=== PATIENT | male | born 1975 | race Caucasian/White ===

== ENCOUNTER 2020-08-10 03:58 | Inpatient (IN) | payer BC ==
[~2020-08-10] VITALS: Ht 198.1 cm; Wt 124.7 kg
[~2020-08-10 03:58] MED LIST: CELEBREX200 MG PO; MEDROL4 M1 PO; NORCO 5-325 TA1 EACH PO
--- NOTE | 2020-08-10 06:49 | NUR ---
ASSESSMENT COMPLETED. GCS 15, A&O X4. LUNGS CLEAR, HEART TONES REGULAR. ABD FIRM, TENDER. RUQ PAIN 8/10, PRN PAIN MED PROVIDED. SPO2 97%. CMS INTACT. IV WNL, CDI, FLUSHED WELL. IV FLUIDS INFUSING PER ORDER. PT LAST ATE @ 1999 ON 08/09/20. CALL LIGHT AND PAIN MANAGEMENT EDUCATION PROVIDED. NO OTHER NEEDS. CALL LIGHT IN REACH.
--- NOTE | 2020-08-10 07:00 | NUR ---
BEDSIDE REPORT RECEIVED FROM DIEGO HERMAN. pt RESTING IN BED AT THIS TIME. RATES PAIN 6/10 IN ABDOMEN "STILL OKAY". IVF INFUSING WNL ORDERED. CPOX IN PLACE, SPO2 WNL. CALL LIGHT IN REACH. FATHER IN ROOM.
--- NOTE | 2020-08-10 07:50 | NUR ---
CALL LIGHT ANSWERED. IV PUMP ALARMING DISTAL OCCLUSION. FLUSHED WNL, GOOD BLOOD RETURN. ASSESSMENT COMPLETE. BOWEL TONES ACTIVE X 4, ABD SOFT, TENDER W PALPATION RUQ. pt DENIES NAUSEA. CALL LIGHT IN REACH. pt HAS NO REQUESTS AT THIS TIME.
--- NOTE | 2020-08-10 09:35 | NUR ---
pt'S DAD TO NURSES STATION. pt REQUESTING FLUIDS. EDUCATED ON NPO STATUS. pt DECLINES MOUTH WASH. IVF INFUSING WNL ORDERED.
[2020-08-10] MEDS ORDERED: OMEPRAZOLE20 MG PO (10:01)
--- NOTE | 2020-08-10 10:18 | NUR ---
pt UP TO RESTROOM WITH QUALITY ASSURANCE NURSE ASSIST. CONSENT FOR SURGERY OBTAINED BY THIS RN AND IN CHART. pt DENIES ANY NEED FOR PRN PAIN MEDICATION. CALL LIGHT IN REACH.
--- NOTE | 2020-08-10 11:03 | NUR ---
IN pt ROOM TO OFFER HIBACLEANSE SHOWER. pt SLEEPING, RESTING IN BED WITH EYES CLOSED. BREATHING EQUAL AND UNLABORED. FATHER ON COUCH.
[2020-08-10] MEDS ORDERED: FISH OIL 1,0001 EAC2 PO (11:13)
--- NOTE | 2020-08-10 11:13 | NUR ---
MED REC COMPLETE
--- NOTE | 2020-08-10 12:00 | NUR ---
In room to reconnect pts IV fluids. IV draws and flushes, pts fluids reconnected and started as ordered. Pt completed his shower, complete hibaclense wash as well, and is in bed (new linens) with new gown on and new socks. Pt in bed, side rails up, table and call light within reach, CPOX on and reading 96% on RA. Pt denies dizziness or nausea and 3/10 tolerable pain.
--- NOTE | 2020-08-10 12:16 | NUR ---
PATIENT FINISHED WITH SHOWER, USED HIBICLENS GEL. CPOX PROBE BACK ON FINGER, BATHROOM FLOOR DRIED, CALL LIGH IN REACH
--- NOTE | 2020-08-10 13:15 | NUR ---
Looking through pts EMAR, noticed that there were two separate orders for Ancef with different dosages, unsure when to give and how much. Called pharmacy and spoke to Hugo, who said he would call MD to discuss the issue.
--- NOTE | 2020-08-10 13:54 | EKG ---
[facility] [address] [facility] [place], [place] [address] Signed Normal sinus rhythm Normal ECG No previous ECGs available Confirmed by SUMEET JOYCE DO ([id number]) on 08/10/2020 1:53:55 PM Electronically Signed By: SUMEET JOYCE DO 08/10/20 1354 PATIENT NAME: JOSE TAVERASFRAN COLINDRES Electrocardiogram DATE OF : 79 PHYSICIAN: SUMEET JOYCE DO REPORT #: [id number] REPORT IS CONFIDENTIAL AND NOT TO BE RELEASED WITHOUT AUTHORIZATION
--- NOTE | 2020-08-10 14:30 | NUR ---
Spoke with Ganesh. He is awaiting surgery. States he lives in an apartment. He plans on returning home on dc. His father and other family members will assist him as needed. He denies needs. States he had a previous inguinal hernia surgery and went home without problem.
--- NOTE | 2020-08-10 16:00 | NUR ---
PT TO OR.
--- NOTE | 2020-08-10 16:35 | NUR ---
In room for rounding. Pt reports minimal pain and no nausea, no needs at this time. Pts dad at bedside. Pt in bed, table and call light within reach.
--- NOTE | 2020-08-10 18:57 | NUR ---
RECEIVED REPORT FROM DIEGO OCONNOR. pt OFF FLOOR AT THIS TIME. WHITEBOARD UPDATED.
--- NOTE | 2020-08-10 21:10 | NUR ---
pt ARRIVED FROM PACU, RECEIVED REPORT FROM DIEGO MIDDLETON. pt DROWSY REPEATED HE WAS "EXTREMELY HUNGRY, I WANT SOME STEAK" DRESSINGS HAVE SCANT SHADOWING NOTED. DRAIN HAS SMALL AMOUNT OF SS OUTPUT.
--- NOTE | 2020-08-10 21:20 | NUR ---
08/10/202119 Minna Rodriguez 2009 PT ARRIVED IN PACU NON RESPONSIVE TO NOXIOUS STIMULI WITH OPA IN PLACE. CHIN LIFT HELD BY RN. 2029 PT BREATHING WITH OPA IN PLACE AND CHIN LIFT NOT NEEDED. 2053 PT REACTIVE. OPA REMOVED. OXYGEN REMOVED. 2054 PT AWAKE AND ASKING QUESTIONS ABOUT SURGERY. 2099 C/O ABD PAIN 10. DECLINED PAIN MED AT THIS TIME. LOOKING AT PICTURE FROM SURGERY. 2109 TO MED SURG. BED PLUGGED IN AND REPORT GIVEN TO RN.
--- NOTE | 2020-08-10 21:45 | NUR ---
pt VERY DROWSY AT TIMES, WAKES EASILY. O2 SAT DROPS TO 85% AT TIMES, 2L VIA NC TO MAINTAIN SATS. TOLERATING JELLO AND WATER, PROVIDED MORE ITEMS TO EAT. PAIN CONTINUES TO BE TOLERABLE. pt STATES "I DON'T FEEL LIKE I'M GOING TO ANY MORE, IT'S SHARPER BUT IT IS MUCH BETTER." CALL LIGHT WITHIN REACH
--- NOTE | 2020-08-10 22:10 | NUR ---
IN TO TAKE POSTOP VITALS, NO FURTHER NEEDS AT THIS TIME
--- NOTE | 2020-08-10 22:35 | NUR ---
pt REPEATS HIS QUESTIONS AND IS DROWSY AT TIMES. ORIENTED X4. DISCUSSED OPERATION AND MEDICATIONS. pt IS TOLERATING JELLO, WATER AND APPLESAUCE. REPORTED HIS PAIN "IS DIFFERENT THAN BEFORE" TOLERABLE AT THIS TIME. DISCUSSED PAIN MANAGEMENT. ALL QUESTIONS ANSWERED. CALL LIGHT WITHIN REACH.
--- NOTE | 2020-08-10 23:10 | NUR ---
IN TO DO VITALS. pt RESTING IN BED WITH EYES CLOSED, WOKE TO VOICE. ON 2L O2 VIA NC. REPORTED HIS PAIN IS "OKAY", MENTIONED HE IS LIGHTHEADED, HIS BLOOD PRESSURE AND PULSE ARE WNL. REINFORCED HE NEEDS TO CALL PRIOR TO GETTING UP. CALL LIGHT WITHIN REACH.
--- NOTE | 2020-08-11 00:01 | NUR ---
IN RM WITH RN TO GET VITALS, I&Os, ASST PT TO STAND, AMBU TO TOILET, PT BK IN BED AT THIS TIME, PT EDUCATION ON BRACING WITH PILLOW FOR COUGH AND MOVEMENT, NO FURTHER NEEDS AT THIS TIME
--- NOTE | 2020-08-11 00:02 | NUR ---
ANTIBIOTIC GIVEN (SEE MAR). pt UP TO VOID, 1PA. PAIN WHEN MOVING, OTHERWISE FINE. HAS SANDWICH AT BEDSIDE. NO FURTHER REQUESTS AT THIS TIME. CALL LIGHT WITHIN REACH.
--- NOTE | 2020-08-11 02:14 | NUR ---
ROUNDED ON pt. RESTING IN BED WITH EYES CLOSED, RESPIRATIONS REGULAR AND UNLABORED. CALL LIGHT WITHIN REACH.
--- NOTE | 2020-08-11 04:11 | NUR ---
ROUNDED ON pt. RESPIRATIONS REGULAR AND UNLABORED. EYES CLOSED. O2 SAT 93% ON ROOM AIR. CALL LIGHT WITHIN REACH.
--- NOTE | 2020-08-11 04:57 | NUR ---
pt RESTING IN BED WITH EYES CLOSED, RESPIRATIONS REGULAR. WOKE TO VOICE. REPORTED 5/10 PAIN, PRN GIVEN (SEE MAR). pt DENIES LIGHTHEADEDNESS AT THIS TIME. QUARTER SIZED SANGUINEOUS DRAINAGE NOTED ON ACTICOAT. DRY DRAINAGE NOTED ON OTHER SURGICAL SITES. CALL LIGHT WITHIN REACH.
--- NOTE | 2020-08-11 06:04 | NUR ---
pt RETURNED FROM SURGERY THIS SHIFT. PAIN CONTROLLED WITH PRN X1. SURGICAL SITE HAS QUARTER SIZED SANGUINEOUS DRAINAGE. OTHER LAP SITES HAVE DRIED DRAINAGE ON STERISTRIPS. AMANUEL DRAIN HAS SMALL AMOUNT OF DRAINAGE ON THE DRESSING. OUTPUT IS SS. pt WAS ABLE TO AMBULATE TO TOILET, SBA. TOLERATING REGULAR DIET. USES CALL LIGHT APPROPRIATELY.
--- NOTE | 2020-08-11 06:42 | NUR ---
IN TO GIVE ABX. pt RESTING IN BED WITH EYES CLOSED, RESPIRATIONS REGULAR AND UNLABORED. O2 SAT 93% ON ROOM AIR. CALL LIGHT WITHIN REACH.
--- NOTE | 2020-08-11 07:05 | NUR ---
To room for shift report from Ashley CORTEZ. Pt report included: Pt had an evening surgery that was a laparoscopic that went open-cholecystectomy. Pt has been advanced through to a regular diet last night and is tolerating it well. No N/V, minimal post-op pain so far through his first night, pain peaked last night at a 5/10. Pts VSS and is currently on CPOX satting at 95% on RA. Pt lying in bed, eyes closed, breathing even and unlabored.
--- NOTE | 2020-08-11 07:35 | NUR ---
PATIENT SLEEPING. WHITE BOARD UPDATED. CALL LIGHT WITHIN REACH. NO OTHER NEEDS AT THIS TIME
--- NOTE | 2020-08-11 08:30 | NUR ---
In room for assessment and med pass. Pt able to take meds without difficulty. Pt assessment complete, VSS, see charting. pT ABLE TO AMBULATE TWO LAPS IN [place] THIS MORNING. PT PREFERS NO PAIN MEDS RIGHT NOW, HE IS "FEELING GOOD" AND DOESN'T NEED THEM". pT IN BED, SIDE RAILS UP, TABLE AND CALL LIGHT WITHIN REACH. oRDERING BREAKFAST. dAD AT BEDSIDE.
--- NOTE | 2020-08-11 08:46 | NUR ---
CALL LIGHT ANSWERED. PATIENT RESTING IN BED. VISITOR AND RN IN ROOM. PATIENT ASSISTED TO USE THE BATHROOM. ONE PERSON ASSISTING. PATIENT AMBULATING IN THE HALLWAY WITH RN. NO OTHER NEEDS AT THIS TIME
--- NOTE | 2020-08-11 09:32 | NUR ---
PATIENT RESTING IN BED. RN IN ROOM. VITAL SIGNS DONE BY RN. I&O DONE. CALL LIGHT WITHIN REACH. NO OTHER NEEDS AT THIS TIME
--- NOTE | 2020-08-11 10:36 | HP ---
[facility] [address] [place], [place] [address] Signed ADMISSION DATE: 08/10/2020 REASON FOR ADMISSION: Acute cholecystitis. HISTORY OF PRESENT ILLNESS: This 6 feet 6 inch, otherwise healthy [place] man, presented to the emergency room, where he was evaluated by Dr. Vasquez at approximately 0430 this morning. He has had several episodes of right upper abdominal pain highly consistent with biliary colic. Indeed, he was to be seen at [facility] for further evaluation of this today. He presented to the emergency room, where he was found to have clinical findings of acute cholecystitis. The gallbladder ultrasound was performed confirming a distended gallbladder, gallbladder wall thickening and debris within the gallbladder itself. He is admitted for further evaluation and care for acute cholecystitis. PAST MEDICAL HISTORY: Surprisingly unremarkable. He denies abdominal surgery in the past. MEDICATIONS: His medications have included Celebrex as needed, recently [place] for abdominal pain. PAST SURGICAL HISTORY: He has undergone a left inguinal hernia repair upon review of his records. He has no ongoing chronic medical problems, specifically no hypertension or pulmonary issues. 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. He is accompanied by his father who is in a similar leadership role for the [employer]. His new [place] himself. He is not and has no children. REVIEW OF SYSTEMS: He denies any shortness of breath or chest pain. His severe right upper abdominal and epigastric pain have improved since admission with fluids and so on. PHYSICAL EXAMINATION: GENERAL: This is a tall man, who appears to be nontoxic systemically. Mucous membranes are reasonably moist. Trachea is midline. CHEST: Clear. HEART: Regular without murmur. Electronically Signed By: FRAN HUERTA MD 08/11/20 1036 PATIENT NAME: FRAN GARCIA III HISTORY AND PHYSICAL DATE OF : 79 REPORT #: [id number] PHYSICIAN: FRAN HUERTA MD PCP: [facility] REPORT IS CONFIDENTIAL AND NOT TO BE RELEASED WITHOUT AUTHORIZATION [facility] [address] [place], [place] [address] Signed ABDOMEN: Nondistended. There is tenderness in the epigastric and right subcostal area. I detect no mass. There is no ascites. EXTREMITIES: Show no clubbing, cyanosis, or edema. LABORATORY STUDIES: Showed white count of 7.5, hematocrit 47.4, platelets 310,000. Chem profile shows creatinine of 1.19. Liver enzymes are normal. The report for the ultrasound confirms gallbladder sludge, wall thickening, and pericholecystic fluid and hydrops of the gallbladder. ASSESSMENT AND PLAN: The patient has acute cholecystitis, likely with stones but possibly only sludge. He is admitted for further evaluation and care to anticipate cholecystectomy today. I discussed with him the pathophysiology of biliary disease with use of illustrations and so on. I have recommended cholecystectomy be performed today preferred by laparoscopic approach. The risks of bleeding, infection, bile duct injury, need for open procedure, need for other indicated procedures was reviewed in detail. Both he and his father understand and agree to proceed. We will maintain his IV fluids, n.p.o. status and so forth, and anticipate surgery today. MD MIKI Servin/RHETT /[id number] cc: [facility] Ian Vasquez DO Copies: [facility] IAN VASQUEZ DO ~ Electronically Signed By: FRAN HUERTA MD 08/11/20 1036 PATIENT NAME: FRAN GARCIA III HISTORY AND PHYSICAL DATE OF : 79 REPORT #: [id number] PHYSICIAN: FRAN HUERTA MD PCP: [facility] REPORT IS CONFIDENTIAL AND NOT TO BE RELEASED WITHOUT AUTHORIZATION
--- NOTE | 2020-08-11 10:36 | OR ---
[facility] [address] [facility] [place], [place] [address] Signed DATE OF OPERATION: 08/10/2020 SURGEON: Fran Huerta MD PREOPERATIVE DIAGNOSIS: Acute cholecystitis. POSTOPERATIVE DIAGNOSIS: Acute calculous cholecystitis. PROCEDURES: 1. Laparoscopic cholecystectomy, conversion to open cholecystectomy; prolonged, complicated and difficult. 2. Surgeon-directed fluoroscopy. ANESTHESIA: General endotracheal; Minh Mcintosh, PLASTICS FABRICATOR DRAINS: 7 mm Suman. INDICATION: This 45-year-old, 6 feet 6 inch somewhat obese [place] man has had two weeks of episodic right upper abdominal and epigastric pain. He had arrangements made to be seen and evaluated at [facility], but his pain became unbearable and he presented to the emergency room at approximately 4:30 today in the morning where he was found to have findings consistent with severe acute cholecystitis. A gallbladder ultrasound was performed, which showed a thickened gallbladder wall and pericholecystic fluid. He has been fluid resuscitated, given intravenous antibiotics, and is now to undergo cholecystectomy preferred by laparoscopic approach. I have reviewed with the patient and his father who attends to him the risks of bleeding, infection, bile duct injury, need for open procedure and other unforeseen complications. He understands and wished to proceed. FINDINGS: The gallbladder was markedly distended. There were very dense omental adhesions surrounding the gallbladder. Laparoscopic cholecystectomy was attempted, but not possible due to the intensity of inflammation and inability to safely dissect the infundibulum well. The gallbladder itself was markedly inflamed, but quite friable and easily made to perforate or bleed. Electronically Signed By: FRAN HUERTA MD 08/11/20 1036 PATIENT NAME: FRAN GARCIA III OPERATIVE REPORT DATE OF : 79 REPORT #: [id number] PHYSICIAN: FRAN HUERTA MD PCP: [facility] REPORT IS CONFIDENTIAL AND NOT TO BE RELEASED WITHOUT AUTHORIZATION [facility] [address] [place], [place] [address] Signed Open procedure was challenging enough as it was, but was accomplished safely. Cholangiogram showed no sign of filling defect or biliary anomaly. He tolerated the procedure well, but it was very prolonged, complicated and difficult. DESCRIPTION OF PROCEDURE: The patient was brought to the operating room, given a general endotracheal anesthetic. Preoperative antibiotic Ancef had been given. Sequential compression device stockings used and heparin subcutaneously administered. The abdomen was prepared with chlorhexidine solution after clipping. After sterile draping, an infraumbilical incision was made and using an open Kirstin cannula technique pneumoperitoneum was achieved to a level of 14 mmHg of carbon dioxide gas. Intraabdominal inspection showed no sign of ascites or carcinomatosis. The gallbladder was not easily visible initially. Liver was somewhat fatty infiltrated. There were omental adhesions in the upper abdomen obscuring the gallbladder. Three additional trocars were placed in usual configuration in the subxiphoid, right midclavicular, and right anterior axillary line. The gallbladder was densely encased by the omental adhesions which were taken down from the gallbladder with great care, but could not be taken down medially and in the region of the infundibulum very well. Using blunt and electrocautery dissection, continued effort was made in this regard, but eventually it became clear that the density of the adhesions to the surrounding structures were simply too much to proceed with a laparoscopic approach. On that basis, conversion to open operation was undertaken. The trocars were removed under direct visualization showing no bleeding. The infraumbilical fascial incision was reapproximated with interrupted 0 Vicryl suture. A right subcostal incision was made utilizing one of the trocar sites at the epigastrium. The subcutaneous tissue was divided with electrocautery as was the anterior rectus sheath, rectus muscle, and posterior rectus sheath and its attendant peritoneum. Intraabdominal inspection showed the gallbladder that was freed laparoscopically to be well positioned with dense adhesions of surrounding structures including the omentum in the area of the infundibulum and elsewhere. A Bookwalter retractor was used to provide exposure. A ring clamp was applied to the gallbladder itself. The peritoneum of the gallbladder was markedly thickened and edematous. This was incised with electrocautery. Dissection was carried as much as possible downwards to allow for visualization of the infundibulum. The dense adhesions of the gallbladder wall were impressive and likely could not have been accomplished laparoscopically in a safe way. Further dissection was undertaken ultimately identifying the infundibulum and extending towards the midline, ultimately the cystic duct. Clips were applied to the cystic arterial branches as necessary. Once the cystic duct was well identified, it was secured with a tonsil clamp. The cystic duct transected and cholangiogram undertaken. Using an Abreu type cholangiocatheter and single loose clips, free flow of contrast was noted into the biliary tree with irrigating saline. Under fluoroscopic control, Electronically Signed By: FRAN HUERTA MD 08/11/20 1036 PATIENT NAME: FRAN GARCIA III DAVID OPERATIVE REPORT DATE OF : 79 REPORT #: [id number] PHYSICIAN: FRAN HUERTA MD PCP: [facility] REPORT IS CONFIDENTIAL AND NOT TO BE RELEASED WITHOUT AUTHORIZATION [facility] [address] [place], [place] [address] Signed intraoperative cholangiography was undertaken showing free flow of contrast in biliary tree with prompt emptying into the duodenum. There was some leakage at the insertion site of the cystic duct, but again no sign of biliary anomaly or other problem. The catheter was removed. The Bookwalter retractor was set up once again. The catheter withdrawn and removed and further dissection of the cystic duct undertaken. Once a generous portion of cystic duct was identified, it was triply clipped with large clips. Small clips were used to secure hemostasis in the region of the pamela hepatis with all due caution of course. Irrigation was undertaken. Some Lisa was applied in the area near the common bile duct and common hepatic duct and hemostasis was considered quite complete. Irrigation was undertaken and at this point, the gallbladder was opened on the back table and found to have several small mulberry stones. Notably, upon milking in a retrograde fashion, the cystic duct, various stones were extracted as well. Through right-sided trocar site, a 7 mm flat Suman drain was placed inside the subhepatic space and secured to the skin with nylon suture. The laparotomy packs were removed and attention turned towards closure. The posterior sheath and its attended peritoneum were reapproximated with running #1 PDS suture. Anterior rectus sheath was reapproximated similarly after irrigation of the muscular layer. Subcutaneous tissue was irrigated and skin closed with running subcuticular 3-0 Vicryl. Steri-Strips were applied. The other trocar site incisions were closed with interrupted 3-0 Vicryl in the skin as well. The patient tolerated the procedure well. Operation was prolonged, complicated, and difficult lasting from 05:46 p.m. to approximately 8:00 p.m. Fran Huerta MD JM/MODL /[id number] Copies: ~ Electronically Signed By: FRAN HUERTA MD 08/11/20 1036 PATIENT NAME: FRAN GARCIA III OPERATIVE REPORT DATE OF : 79 REPORT #: [id number] PHYSICIAN: FRAN HUERTA MD PCP: [facility] REPORT IS CONFIDENTIAL AND NOT TO BE RELEASED WITHOUT AUTHORIZATION
--- NOTE | 2020-08-11 12:10 | NUR ---
In room for rounding. Pt reports 7/10 pain. PRN toradol given per orders. Pt lying in bed, side rails up, table and call light within reach.
--- NOTE | 2020-08-11 13:00 | NUR ---
PATIENT RESTING IN BED. VITAL SIGNS AND I&O DONE. CALL LIGHT WITHIN REACH. NO OTHER NEEDS AT THIS TIME
--- NOTE | 2020-08-11 17:00 | NUR ---
PATIENT RESTING IN BED. DAD IN ROOM. VITAL SIGNS AND I&O DONE. CALL LIGHT WITHIN REACH. NO OTHER NEEDS AT THIS TIME
--- NOTE | 2020-08-11 17:43 | NUR ---
Patient doing very well at this time. Denies need for pain medication, he reports feeling little pain to abdomen. Abd incisions/dressing unchanged, scant sarosang drainage noted to dressings. Suman drain intact to RLQ; patent with small amount of sarosang drainage. Pt has walked several times and tolerates well. Diet and oral intake has been tolerated well. No needs at this time. Patient's father has been visiting intermittently today.
--- NOTE | 2020-08-11 18:17 | NUR ---
A&OX4. ON RA. PAIN WELL CONTROLLED-TORADOL IN USE. UP TO BR STBY ASSIST. WELL TOLERATED REGULAR DIET. AMANUEL DRAIN TO RLQ;SAROSANG DRAINAGE. DRESSSING UNCHANGED-SEE CHARTING. PT CALLS APPROP.
--- NOTE | 2020-08-11 18:57 | NUR ---
Tylenol 1000mg po admin for reports of 5/10 abd pain.
--- NOTE | 2020-08-11 19:12 | NUR ---
RECEIVED REPORT FROM DIEGO CAMACHO. pt JUST GOT BACK FROM AMBULATING IN [place]. PAIN OKAY AT THIS TIME. NO REQUESTS AT THIS TIME. INCISIONS HAVE DRIED DRAINAGE, DRESSING DRY AND INTACT. CALL LIGHT WITHIN REACH.
--- NOTE | 2020-08-11 20:40 | NUR ---
pt REPORTED A HEADACHE, TALKED ABOUT POSSIBLE TREATMENT OPTIONS. PROVIDED BROTH. PROVIDED ICE PACKS FOR DISCOMFORT IN ABD. REPORTED 5/10 PAIN OVERALL, PRN GIVEN WITH SCHEDULED MEDICATIONS. DRESSING DRY AND INTACT, NO NEW DRAINAGE NOTED. CALL LIGHT WITHIN REACH.
--- NOTE | 2020-08-11 21:43 | NUR ---
ROUNDED ON pt. RESTING IN BED. REPORTED "I'M JUST RELAXING, I'M FEELING COMFORTABLE." NO REQUESTS AT THIS TIME. CALL LIGHT WITHIN REACH.
--- NOTE | 2020-08-11 23:41 | NUR ---
ROUNDED ON pt. RESTING IN BED WITH EYES CLOSED, RESPIRATIONS REGULAR AND UNLABORED. CALL LIGHT WITHIN REACH.
--- NOTE | 2020-08-12 00:03 | NUR ---
CALL LIGHT ON. pt UP TO VOID AND BACK TO BED. STATED "I FEEL SO MUCH BETTER IN THE LAST 4 HOURS, IT IS EASIER TO GET OUT OF BED." REFUSED PAIN MEDICATION AT THIS TIME. FRESH ICE PACKS PROVIDED. NEW BAG OF IVF HUNG. CALL LIGHT WITHIN REACH.
--- NOTE | 2020-08-12 02:10 | NUR ---
ROUNDED ON pt. RESTING WITH EYES CLOSED, RESPIRATIONS REGULAR AND UNLABORED CALL LIGHT WITHIN REACH.
--- NOTE | 2020-08-12 04:15 | NUR ---
ROUNDED ON pt. RESTING IN BED, EYES CLOSED, RESPIRATIONS REGULAR AND UNLABORED. CALL LIGHT WITHIN REACH.
--- NOTE | 2020-08-12 05:21 | NUR ---
IN TO DO ASSESSMENT. pt WOKE TO VOICE. REPORTED HIS PAIN IS "OKAY" REFUSED PAIN MEDICATION AT THIS TIME. VITALS AND I&O RECORDED. SCANT AMOUNT OF DRAINAGE IN AMANUEL DRAIN, SS. NO NEW SHADOWING NOTED ON DRESSINGS. pt REPORTED "I FEEL BLOATED, BUT NOT BAD LAST NIGHT. I PASSED A BUNCH OF GAS." NO REQUESTS AT THIS TIME. CALL LIGHT WITHIN REACH.
--- NOTE | 2020-08-12 05:48 | NUR ---
pt RESTED MOST OF SHIFT. REPORTED PASSING A "LARGE" AMOUNT OF GAS. PAIN TOLERATED WITHOUT PAIN MEDICATIONS. AMANUEL DRAIN HAS SS DRAINAGE. DRESSING DRY AND INTACT, NO NEW DRAINAGE. BOWEL TONES ACTIVE. SBA. IV FLUIDS. TOLERATING REGULAR DIET. USES CALL LIGHT APPROPRIATELY.
--- NOTE | 2020-08-12 07:00 | NUR ---
in rm to sba pt up to void
--- NOTE | 2020-08-12 07:23 | NUR ---
Pt resting in bed, alert and oriented x4. Pt up to void recently. Pt reports tolerable abdominal pain at this time. No needs at this time. Personal supplies and call light within reach.
--- NOTE | 2020-08-12 07:48 | NUR ---
PATIENT RESTING IN BED. WHITE BOARD UPDATED. CALL LIGHT WITHIN REACH. NO OTHER NEEDS AT THIS TIME
--- NOTE | 2020-08-12 08:32 | NUR ---
Tylenol 1000mg po admin for reports of 5/10 abd pain.
--- NOTE | 2020-08-12 09:16 | NUR ---
PATIENT RESTING IN BED. VITAL SIGNA AND I&O DONE. CALL LIGHT WITHIN REACH. NO OTHER NEEDS AT THIS TIME
--- NOTE | 2020-08-12 11:39 | NUR ---
Patient resting in bed, a&ox4, respirations even and non labored. Patient reports tolerable abdominal pain. Abd dressing unchanged; robina intact to Right abd quadrant; patent with small amount of sarosang drainage noted. Pt doing very well today, ambulated independently and denies n/v. Pt reports he is passing flatus.
--- NOTE | 2020-08-12 13:03 | NUR ---
In to round on patient. Patient doing well, denies the need for pain. Abd dressing(s) unchanged. Suman drain intact, patent with sarosang drainage. Patient has no needs. Personal supplies and call light within reach.
[2020-08-12] MEDS ORDERED: IBUPROFEN600 MG PO (14:24)
[2020-08-12] MEDS ORDERED: ACETAMINOPHEN500 MG PO (14:24)
--- NOTE | 2020-08-13 16:25 | DS ---
[facility] [address] [place], [place] [address] Signed ADMISSION DATE: 08/10/2020 DISCHARGE DATE: 08/12/2020 REASON FOR ADMISSION: This 45-year-old [place] man, is otherwise healthy and presents to the emergency room, was evaluated by Dr. Vasquez for severe right upper abdominal pain. The patient has been having similar type of episodes of pain for the past several weeks. He was scheduled to be seen at [facility] for further evaluation on the day as it turns out. His evaluation in the emergency room included gallbladder ultrasound showing a distended gallbladder, gallbladder wall thickening, pericholecystic fluid, and debris within the gallbladder itself. He is admitted for further evaluation and care for acute calculous or acalculous cholecystitis. PERTINENT PHYSICAL EXAMINATION: GENERAL: Showed a very tall man, 6 feet 6 inches in height, who did not look systemically toxic. HEENT: Mucous membranes were moist. NECK: Trachea was midline. CHEST: Clear. HEART: Regular, without murmur. ABDOMEN: Nondistended. There is marked tenderness in the epigastric and right subcostal area. There is no mass. There is no ascites. EXTREMITIES: Show no clubbing, cyanosis, or edema. LABORATORY DATA: White count was only 7.5, hematocrit 47.4, and platelets 310,000. Chem-profile showed creatinine 1.19. Liver enzymes normal. HOSPITAL COURSE: The patient had been admitted, given intravenous antibiotics, and put on pain medication and fluid resuscitation. Later in the day, he was taken to the operation, anticipating laparoscopic cholecystectomy. At operation, attempts at laparoscopic cholecystectomy completely unsuccessful. He has had marked inflammatory change of omentum in the area of the infundibulum. The gallbladder was tensed and distended, but friable and easily made to tear. The liver itself was normal. Conversion to open operation was required. The operation was prolonged, complicated, difficult even with an open approach on that basis. Cholangiogram was performed, which was normal. He did in fact have a few small mulberry Electronically Signed By: FRAN HUERTA MD 08/13/20 1625 PATIENT NAME: FRAN GARCIA III DISCHARGE SUMMARY DATE OF : 79 REPORT #: [id number] PHYSICIAN: FRAN HUERTA MD PCP: [facility] REPORT IS CONFIDENTIAL AND NOT TO BE RELEASED WITHOUT AUTHORIZATION [facility] [address] [place] [id number] Signed yellow gallstones within the gallbladder itself. A drain was placed. Postoperatively, he had marked improvement of his biliary symptoms, but did have incisional pain as might be expected. He was advanced in his diet promptly and by day of discharge, he is ambulating well, tolerating a regular diet. He has minimal incisional pain with non opiate oral analgesics. The drain that was placed showed no evidence of bile leak and was removed prior to discharge. FOLLOWUP PLANS: He will return to see me in approximately 4 weeks. He is instructed to lift no more than 20 pounds for the next 4 weeks. He is permitted to shower. He will leave [employer]rips on. DISCHARGE DIAGNOSES: 1. Acute calculous cholecystitis, status post laparoscopy with conversion to open cholecystectomy with intraoperative cholangiogram and placement of drain. 2. Distant history of inguinal hernia repair. DISCHARGE MEDICATIONS: 1. Ibuprofen 600 mg p.o. q.6 hours as needed for pain, #60. 2. Tylenol 1000 mg p.o. q.6 hours as needed for pain, #60. 3. He will continue his usual medication of omeprazole 20 mg p.o. daily, omega-3 fatty acid fish oil tablets. Fran Huerta MD /MODL /[id number] cc: [facility] Mery Vasquez DO Copies: [facility] Electronically Signed By: FRAN HUERTA MD 08/13/20 1625 PATIENT NAME: FRAN GARCIA III DISCHARGE SUMMARY DATE OF : 79 REPORT #: [id number] PHYSICIAN: FRAN HUERTA MD PCP: [facility] REPORT IS CONFIDENTIAL AND NOT TO BE RELEASED WITHOUT AUTHORIZATION [facility] [address] [place] [address] [place], [place] [address] Signed MERY VASQUEZ DO ~ Electronically Signed By: FRAN HUERTA MD 08/13/20 1625 PATIENT NAME: FRAN GARCIA III DISCHARGE SUMMARY DATE OF : 79 REPORT #: [id number] PHYSICIAN: FRAN HUERTA MD PCP: [facility] REPORT IS CONFIDENTIAL AND NOT TO BE RELEASED WITHOUT AUTHORIZATION
--- NOTE | 2020-08-14 11:23 | PATH ---
[facility] [address] [place], [place] [address] Signed SPECIMEN(S): A GALLBLADDER SPECIMEN SOURCE: A. GALLBLADDER CLINICAL HISTORY: Acute cholecystitis. FINAL PATHOLOGIC DIAGNOSIS: Gallbladder, cholecystectomy: - Acute on chronic cholecystitis with cholesterolosis. - Cholelithiasis. NAL:cml:C2NR MICROSCOPIC EXAMINATION: Histologic sections of all submitted blocks are examined by light microscopy. These findings, together with the gross examination, support the pathologic diagnosis. GROSS DESCRIPTION: The specimen, labeled "JT, gallbladder," is received in formalin and consists of Specimen: Previously opened gallbladder. Dimensions: 12.5 cm in length and 5.7 cm in inner circumference. Serosa: Violaceous, smooth and focally congested. Cystic Duct: Unobstructed. Calculi: Five yellow calculi that range in size from 0.1-0.3 cm in greatest dimension are identified within the container. Mucosa: Brown-richards and velvety. Wall thickness: 0.7 cm. Lymph node: No pericystic lymph nodes are grossly identified. Additional: None. Supervisory Lifeguard sections are submitted in cassette (A1). JS (under the direct supervision of a pathologist) The Gross Description was prepared using a voice recognition system. The report was reviewed for accuracy; however, sound-alike word errors, addition and/or deletions may occur. If there is any question about this report, please contact Client Services. PERFORMING LABORATORY: The technical component was performed by [employer], Wendy Turner, PATIENT NAME: FRAN GARCIA III PATHOLOGY DATE OF : 79 REPORT #: [id number] PHYSICIAN: DONALD PATHOLOGY PCP: [facility] REPORT IS CONFIDENTIAL AND NOT TO BE RELEASED WITHOUT AUTHORIZATION [facility] [address] [place], [place] [address] [place] [address] (Unemployment Claims Adjudicator: Kiera Wilson MD; CLIA# [id number]). Professional interpretation was performed by [facility], [address] [address] (CLIA# [id number]). Diagnostician: Wendy Munoz MD Pathologist Electronically Signed 08/14/2020 Copies: ~ PATIENT NAME: FRAN GARCIA III PATHOLOGY DATE OF : 79 REPORT #: [id number] PHYSICIAN: DONALD ALMENDAREZ [facility]CP: [facility] REPORT IS CONFIDENTIAL AND NOT TO BE RELEASED WITHOUT AUTHORIZATION
== END 2020-08-12 14:55 | disposition home or self-care (01) | DRG 416 ==
LOC: ED 03:58 → MS 04:00
PROVIDERS: ADMIT Surgery; ATTEND Surgery
PROC: BF13YZZ Fluoroscopy of Gallbladder and Bile Ducts using Other Contrast (ICD-10-PCS; 2020-08-10)
PROC: 0FJ44ZZ Inspection of Gallbladder, Percutaneous Endoscopic Approach (ICD-10-PCS; principal; 2020-08-10 14:30)
PROC: 0FT40ZZ Resection of Gallbladder, Open Approach (ICD-10-PCS; 2020-08-10 14:30)
DX: K80.00 Calculus of gallbladder with acute cholecystitis without obstruction (principal); Z79.899 Other long term (current) drug therapy; Z53.31 Laparoscopic surgical procedure converted to open procedure; Z20.828 Contact with and (suspected) exposure to other viral communicable diseases
CPT/HCPCS: 00790; 74300; 76705; 80053; 81001; 83690; 84484; 85025; 93005; 93010; 96374; 96375; 96376; 99285-25; C9803; G0378; J0690; J1100; J1170; J1644; J1885; J2001; J2405; J2704; J3010; J7030; J7121; Q9967; U0003

== ENCOUNTER 2024-01-28 07:03 | Day surgery (SDC) | payer BC ==
[2024-01-26 16:39] VITALS: BP 134/85
[~2024-01-28] VITALS: Ht 198.1 cm; Wt 123.6 kg
[~2024-01-28 07:03] MED LIST changes: +ACETAMINOPHEN500 MG PO; +FISH OIL 1,0001 EAC2 PO; +IBLOOD GLUCOSE TEST STRIP 1 EA TEST VI PRN; +IBUPROFEN600 MG PO; +LACTATED RINGER'S 1,000 ML IV SCH; +LIDOCAINE HCL 1% 5 ML SDV INJ ONE; +MIDAZOLAM HCL 5 MG/5 ML VIAL IV PRN; +OMEPRAZOLE20 MG PO; +fentaNYL citrate 100 MCG/2 ML VIAL IV PRN
[2024-01-28 07:29] VITALS: BP 130/87
--- NOTE | 2024-01-28 07:31 | NUR ---
UNABLE TO VISIT DURING SPIRITUAL CARE ROUNDS. PT RECEIVING NURSING CARE. DID NOT INTERRUPT. PROVIDED PRAYER.
[2024-01-28] MEDS ORDERED: LIDOCAINE HCL 2% 5 ML SDV ONE (07:49)
[2024-01-28] MEDS ORDERED: propofoL 200 MG/20 ML VIAL ONE ×2 (07:49→08:44)
--- NOTE | 2024-01-28 09:12 | NUR ---
01/28/24 0912 Jorge Boyle 0904: PT ARRIVED TO PACU VIA STRETCHER WITH ORAL AIRWAY IN PLACE AND ON 6L VIA MASK. PT NON AROUSABLE AT THIS TIME. DEPUTY SHERIFF LIEUTENANT AT BEDSIDE WITH PATIETN FOR REPORT.
--- NOTE | 2024-01-28 09:52 | OR ---
[facility] [address] [place], [place] [address] Signed DATE OF OPERATION: 01/28/2024 SURGEON: Barak Rangel MD PREOPERATIVE DIAGNOSIS: Screening. POSTOPERATIVE DIAGNOSES: 1. A 3-4 cm pedunculated polyp at proximal right colon (snare, clips x3). 2. A 4 mm polyp at hepatic flexure. 3. A 3 mm polyp at the cecum. 4. A 5 mm polyp at proximal transverse colon. 5. Minimal sigmoid diverticulosis. 6. Minimal internal hemorrhoids. PROCEDURES: Colonoscopy, snare polypectomy, hot biopsy and clips x3. ESTIMATED BLOOD LOSS: Minimal. INDICATIONS: Fran is a 48-year-old gentleman, asked to see me for his initial screening colonoscopy. He said he has no lower GI complaints. There is no family history of colon cancer or polyps. In the office, I gave him a brochure on colonoscopy. We had reviewed the nature of the test. There is risk including, but not limited to gas bloating, crampy abdominal pain, bleeding, perforation requiring surgery, and missed diagnosis. We also reviewed the written instructions for the bowel prep line by line. He also understands the need for IV conscious sedation. Despite his instructions, he did eat at least two meatballs yesterday at some meetings. He went home and took some additional bowel prep. Unfortunately, his bowel prep today was moderate. DESCRIPTION OF PROCEDURE: Fran was taken into our endoscopy suite and placed in the left lateral decubitus position. He was given monitored anesthesia care, propofol infusion per nurse avionics systems integration specialist. Digital rectal exam was performed. There were no external hemorrhoids. Good sphincter tone. There was no masses noted. He is a very tall man and I could not reach his prostate gland. The adult colonoscope had been introduced and advanced under direct visualization of camera. We worked our way very carefully up through liquid particulate stool matter, particularly in the sigmoid and left colon. Eventually, we Electronically Signed By: BARAK RANGEL MD 01/28/24 0952 PATIENT NAME: FRAN GARCIA III OPERATIVE REPORT DATE OF : 79 REPORT #: [id number] PHYSICIAN: BARAK RANGEL MD PCP: [facility] REPORT IS CONFIDENTIAL AND NOT TO BE RELEASED WITHOUT AUTHORIZATION [facility] [address] [place], [place] [address] [address] our way over to the cecum. He had a large pedunculated polyp in the proximal right colon. We divided that with the snare and took it out into pieces. It was bleeding a little so, we put three sequential clips across that polypectomy site that provided good hemostasis. He had just a tiny polyp that we took out of his cecum as well as the hepatic flexure and the proximal transverse colon with a hot biopsy forceps. We spent quite a bit of time irrigating, suctioning out much of the liquid particulate stool matter. We could not quite get all of it. We worked our way down through the sigmoid colon and again he has diverticulosis. They are moderate in size, few in number and scattered about. In the rectum, the scope was retroflexed. He has just very minimal standard internal hemorrhoid tissue. After this, the gas was suctioned out, colonoscope removed. Fran tolerated procedure quite well. RECOMMENDATIONS: I will see Fran back in my office in 7 to 14 days to review his results. He should probably consider coming back on a short interval, say 1-2 years for followup colonoscopy with additional bowel prep. He did very well with his moderate anesthesia care today given his full round face and his medical issues. Barak Rangel MD ALB/MODL /[id number] cc: Patient Chart Yair Mcgraw, Nurse Practitioner [facility] Barak Rangel MD Copies: BARAK RANGEL MD ~ Electronically Signed By: BARAK RANGEL MD 01/28/24 0952 PATIENT NAME: FRAN GARCIA NITIN OPERATIVE REPORT DATE OF : 79 REPORT #: [id number] PHYSICIAN: BARAK RANGEL MD PCP: [facility] REPORT IS CONFIDENTIAL AND NOT TO BE RELEASED WITHOUT AUTHORIZATION
[2024-01-28 10:06] VITALS: BP 100/80
--- NOTE | 2024-02-03 11:17 | PATH ---
[facility] [address] [place], [place] [address] Signed SPECIMEN(S): A PROXIMAL ASCENDING COLON POLYP SPECIMEN(S): B HEPATIC FLEXURE COLON POLYP SPECIMEN(S): C CECUM COLON POLYP SPECIMEN(S): D PROXIMAL TRANSVERSE COLON POLYP SPECIMEN SOURCE: A. PROXIMAL ASCENDING COLON POLYP B. HEPATIC FLEXURE COLON POLYP C. CECUM COLON POLYP D. PROXIMAL TRANSVERSE COLON POLYP CLINICAL HISTORY: Initial screening colonoscopy, family history of colon cancer FINAL PATHOLOGIC DIAGNOSIS: A. Ascending colon polyps, polypectomies (2): - Tubular adenomas (2), negative for high-grade dysplasia or malignancy. B. Hepatic flexure polyp, biopsy: - Mildly hyperplastic colonic mucosa. C. Cecal polyp, biopsies: - Tubular adenoma. D. Proximal transverse colon polyp, biopsies: - Tubular adenoma. AMB MICROSCOPIC EXAMINATION: Histologic sections of all submitted blocks are examined by light microscopy. These findings, together with the gross examination, support the pathologic diagnosis. GROSS DESCRIPTION: A. The specimen, labeled and designated "Jordan, proximal ascending colon polyp," is received in formalin and consists of two polyps of richards-brown bosselated tissue (1.6 x 1.2 x 1.2 cm, and 1.8 x 1.2 x 1.2 cm). The possible resection margins are differentially inked blue and black respectively, and the tissue is serially sectioned to reveal richards-brown soft cut surfaces. The specimen is submitted entirely in cassette (A1-A2). B. The specimen, labeled and designated "Jordan, hepatic flexure colon polyps," is received in formalin and consists of one richards soft tissue fragment, 0.2 cm. Entirely submitted in (B1). PATIENT NAME: FRAN GARCIA III PATHOLOGY DATE OF : 79 REPORT #: [id number] PHYSICIAN: DONALD ALMENDAREZ PCP: [facility] REPORT IS CONFIDENTIAL AND NOT TO BE RELEASED WITHOUT AUTHORIZATION [facility] [address] [place], [place] [address] Signed C. The specimen, labeled and designated "Doug, cecum colon polyp," is received in formalin and consists of two richards soft tissue fragments, ranging from 0.3-0.4 cm. Entirely submitted in (C1). D. The specimen, labeled and designated "Doug, proximal transverse colon polyp," is received in formalin and consists of two richards soft tissue fragments, ranging from 0.2-0.3 cm. Entirely submitted in (D1). VB (under the direct supervision of a pathologist) The Gross Description was prepared using a voice recognition system. The report was reviewed for accuracy; however, sound-alike word errors, addition and/or deletions may occur. If there is any question about this report, please contact Client Services. ADDITIONAL NOTES: Immunohistochemical and/or in situ hybridization studies if performed in this case included appropriate positive controls that reacted as expected. This test was developed and its performance characteristics determined by [facility]. It has not been cleared or approved by the U.S. Food and Drug Administration. The FDA has determined that such clearance or approval is not necessary. This test is used for clinical purposes. It should not be regarded as investigational or for research. [facility] is certified under the Clinical Laboratory Improvement Amendments of 1988 (CLIA) as qualified to perform high complexity clinical laboratory testing. PERFORMING LABORATORY: Technical component was performed by [facility], [address] [place] [address] (CLIA# [id number]). Professional interpretation was performed by [facility] [address] [place] [id number] [id number] Diagnostician: Kiera Wilson MD Pathologist Electronically Signed 02/03/2024 Copies: ~ PATIENT NAME: FRAN GARCIA NITIN PATHOLOGY DATE OF : 79 REPORT #: [id number] PHYSICIAN: DONALD ALMENDAREZ PCP: [facility]- REPORT IS CONFIDENTIAL AND NOT TO BE RELEASED WITHOUT AUTHORIZATION
== END 2024-01-28 10:00 | disposition home or self-care (01) ==
LOC: DS 07:03
PROVIDERS: ATTEND Colon & Rectal Surgery
PROC: 0DBE8ZX Excision of Large Intestine, Via Natural or Artificial Opening Endoscopic, Diagnostic (ICD-10-PCS; principal; 2024-01-28 08:15)
DX: Z12.11 Encounter for screening for malignant neoplasm of colon (principal); D12.0 Benign neoplasm of cecum; D12.2 Benign neoplasm of ascending colon; D12.3 Benign neoplasm of transverse colon; K63.5 Polyp of colon; K57.30 Diverticulosis of large intestine without perforation or abscess without bleeding; K64.8 Other hemorrhoids; G47.33 Obstructive sleep apnea (adult) (pediatric); K21.9 Gastro-esophageal reflux disease without esophagitis; E78.5 Hyperlipidemia, unspecified; E66.9 Obesity, unspecified; Z68.32 Body mass index [BMI] 32.0-32.9, adult
CPT/HCPCS: 00812; J2001; J2704; J7121

== ENCOUNTER 2025-03-29 15:16 | Inpatient (IN) | payer BC ==
[~2025-03-29] VITALS: Ht 198.1 cm; Wt 119.2 kg
[~2025-03-29 15:16] MED LIST changes: -IBLOOD GLUCOSE TEST STRIP 1 EA TEST VI PRN; -LACTATED RINGER'S 1,000 ML IV SCH; -LIDOCAINE HCL 1% 5 ML SDV INJ ONE; -MIDAZOLAM HCL 5 MG/5 ML VIAL IV PRN; -fentaNYL citrate 100 MCG/2 ML VIAL IV PRN
[2025-03-29] MEDS ORDERED: SEMAGLUTID (15:39)
[2025-03-29] MEDS ORDERED: SODIUM CHLORIDE 0.9% 500 ML IV ONE (15:45)
[2025-03-29 15:46] LABS: BASOPHILS 0.7 % (0.2-1.2); EOSINOPHILS 1.1 % (0.8-7.0); LYMPHOCYTES 18.4 % (21.8-53.1); MCH 28.6 PG (25.7-32.2); MCHC 33.9 g/dL (32.3-36.5); MCV 84.5 fL (79.0-92.2); MONOCYTES 8.3 % (5.3-12.2); NEUTROPHILS 71.4 % (34.0-67.9); RBC 6.32 M/uL (4.63-6.08)
[2025-03-29 16:08] LABS: AST (SGOT) 985.0 U/L (15-37); GLOMERULAR FILTRATION RATE,EST 67.0 mL/min (>60); PROTEIN, TOTAL 8.7 g/dL (6.4-8.2); UREA NITROGEN 11.0 mg/dL (7-18)
[2025-03-29 16:09] LABS: ALT (SGPT) 1102.0 U/L (14-59)
[2025-03-29] MEDS ORDERED: PANTOPRAZOLE SODIUM 40 MG/10 ML VIAL IV ONE (16:45)
[2025-03-29] MEDS ORDERED: SODIUM CHLORIDE 0.9% 1,000 ML IV ONE (16:45)
[2025-03-29 18:46] LABS: BLOOD/HGB, URINE NEGATIVE (Negative); KETONE, URINE SMALL (Negative); LEUK ESTERASE, URINE NEGATIVE (negative); NITRITE, URINE NEGATIVE (negative)
[2025-03-29 21:34] VITALS: BP 156/99
--- NOTE | 2025-03-29 21:35 | NUR ---
PATIENT TO THE FLOOR VIA STRETCHER BY THIS RN. PATIENT TRANSFERRED FROM STRETCHER TO BED INDEPENDENTLY. PATIENT EDUCATED TO ROOM AND CALL SANDRA. CARMINE RN IN ROOM TO COMPLETE ADMISSION.
[2025-03-29] MEDS ORDERED: LACTATED RINGER'S 1,000 ML IV SCH (21:45)
[2025-03-29] MEDS ORDERED: HYDROmorphone HCL 1 MG/ML SYR IV PRN (21:45)
--- NOTE | 2025-03-29 22:25 | NUR ---
PT C/O ABDOMINAL PAIN TO R MID/LOWER QUADRANT 04/06. PT MEDICATED WITH 0.5MG IV DILAUDID. PT INSTRUCTED TO CALL FOR ASSISTANCE. SIDERAILS UP X2, CALL OLEARY IN REACH, BED IN LOW POSITION AND LOCKED.
--- NOTE | 2025-03-29 23:35 | NUR ---
PATIENT RESTING IN BED WITH EYES CLOSED. RESPIRATIONS EVEN AND UNLABORED. CALL LIGHT IN REACH.
[2025-03-30] VITALS (7 sets, daily range): BP systolic 129–154; BP diastolic 81–99
--- NOTE | 2025-03-30 01:22 | NUR ---
PATIENT RESTING IN BED WITH EYES CLOSED, AWAKENS EASILY. VS AND I&Os OBTAINED AND RECORDED. ASSESSMENT COMPLETE. PATIENT DENIES FURTHER NEEDS AT THIS TIME. PATIENT DENIES ABD PAIN. CALL LIGHT IN REACH.
--- NOTE | 2025-03-30 02:52 | NUR ---
PATIENT RESTING IN BED WITH EYES CLOSED. RESPIRATIONS EVEN AND UNLABORED. CALL LIGHT IN REACH.
[2025-03-30 05:43] LABS: AST (SGOT) 673.0 U/L (15-37); GLOMERULAR FILTRATION RATE,EST 89.0 mL/min (>60); PROTEIN, TOTAL 6.7 g/dL (6.4-8.2); UREA NITROGEN 7.0 mg/dL (7-18)
[2025-03-30 05:45] LABS: ALT (SGPT) 1118.0 U/L (14-59)
--- NOTE | 2025-03-30 05:45 | NUR ---
PATIENT RESTING IN BED. VS AND I&Os OBTAINED AND RECORDED. VERY DARK ASAEL COLORED URINE NOTED. PATIENT STATES "MY URINE HAS NEVER LOOKED LIKE THAT BEFORE". PATIENT DENIES FURTHER NEEDS AT THIS TIME. NEW BAG IV FLUID INFUSING PER ORDER. CALL LIGHT IN REACH.
--- NOTE | 2025-03-30 06:13 | NUR ---
CALL PLACED TO MD BARNARD REGARDING PATIENT HAVING A HEADACHE. NEW ORDERS RECEIVED. VERIFIED USING REPEATBACK METHOD.
[2025-03-30] MEDS ORDERED: IBUPROFEN 400 MG TAB PO PRN (06:15)
--- NOTE | 2025-03-30 06:41 | NUR ---
PRN PAIN MEDICATION ADMINISTERED FOR 4/10 HEADACHE PAIN. NO FURTHER NEEDS. CALL LIGHT IN REACH.
--- NOTE | 2025-03-30 07:32 | NUR ---
REPORT RECIEVED FROM DIEGO DELANEY. PATIENT RESTING IN BED ON HIS RIGHT SIDE WITH HIS EYES CLOSED. EVEN AND UNLABORED RESPIRATIONS NOTED. CALL LIGHT AND PERSONAL BELONGINGS ARE WITHIN REACH. WHITE BOARD UPDATED.
--- NOTE | 2025-03-30 07:56 | NUR ---
LAB IN ROOM FOR BLOOD DRAW. PATIENT IV FLUSHED WITH 10ML OF NS, DRESSING INTACT. IV LR DISCONTINUED. NEW IV MEDICATION STARTED AT THIS TIME. PATIENT REPORT HEADACHE, BUT STATES IT HAS SINCE IMPROVED SINCE PREVIOUS MEDICATION ADMINISTRATION. PATIENT WITHOUT FURTHER NEEDS AT THIS TIME. CALL LIGHT AND PERSONAL BELONGINGS ARE WITHIN REACH.
[2025-03-30 08:32] LABS: BASOPHILS 1.1 % (0.2-1.2); EOSINOPHILS 3.3 % (0.8-7.0); LYMPHOCYTES 19.6 % (21.8-53.1); MCH 28.7 PG (25.7-32.2); MCHC 33.9 g/dL (32.3-36.5); MCV 84.7 fL (79.0-92.2); MONOCYTES 11.4 % (5.3-12.2); NEUTROPHILS 64.4 % (34.0-67.9); RBC 5.16 M/uL (4.63-6.08)
[2025-03-30 08:35] LABS: INR 1.15 (0.80-1.30); PROTIME 13.9 Sec (11.2-14.2)
--- NOTE | 2025-03-30 09:19 | NUR ---
PT SITTING UP IN CHAIR THIS MORNING, VURRENTLY VISITING WITH CASE MGMT. IV MEDS INFUSING, NEW BAG STARTED. VS STABLE. RA AT THIS TIME. PT C/O DIZZINESS WITH MOVEMENT OF HEAD, IMPROVED HEADACHE 2/10 AT THIS TIME. MD INFORMED, WILL START ON SOME IV FLUIDS. URINAL EMPTIED - VERY DARK ASAEL URINE IN URINAL. BY THE TIME THIS RN LEAVES ROOM, PT STATES DIZZINESS IS IMPROVING. FRESH ICE WATER PROVIDED. CALL LIGHT WITHIN REACH, PT DENIES ANY OTHER NEEDS.
--- NOTE | 2025-03-30 09:26 | NUR ---
IV FLUIDS BOLUS STARTED AT THIS TIME. PT HAVING EMESIS AT BEDSIDE PRN SANDRA DENIES NEEDS AT THIS TIME. PT STATES IT IS BECAUSE HE DRANK MILK, HE STATES LACTOSE INTOLERANT, WILL UPDATE DIET ORDER TO INCLUDE INTOLERANCE. PT STATES HIS NAUSEA HAS SUBSIDED AFTER THAT EMESIS. WILL ASK TO SEE IF WE HAVE SOME LACTAID PRN WITH MD. DENIES ANY OTHER NEEDS AT THIS TIME.
[2025-03-30] MEDS ORDERED: LACTATED RINGER'S 1,000 ML IV ONE (09:30)
--- NOTE | 2025-03-30 09:31 | NUR ---
INTO SEE PATIENT. PERSONAL HEALTH INFORMATION REVIEWED. PATIENT LIVES IN AN APARTMENT ALONE WITH 15 STEPS INTO. DENIES DIFFCULTY DOING THEM. DOES NOT USE A WALKER, CANE OR WHEELCHAIR. PATIENT DOES USE A CPAP NORCO. PATIENT DRIVES AT BASELINE. PATIENT RECENTLY WENT TO [facility].
--- NOTE | 2025-03-30 09:50 | NUR ---
PATIENT LAYING IN BED AND REPORTS STILL FEELING DIZZY/LIGHTHEADED. PATIENT REPORTS HEADACHE A 1/10. ICE PACK PROVIDED AND SHADES LOWERED IN ROOM PER PATIENT REQUEST. PATIENT DENIES ANY NAUSEA OR PAIN. PATIENT WITHOUT FURTHER NEEDS AT THIS TIME. CALL LIGHT AND PERSONAL BELONGINGS ARE WITHIN REACH.
--- NOTE | 2025-03-30 10:01 | NUR ---
PATIENT IV FLUSHED WITH 10ML OF NS, DRESSING IS INTACT. IV SALINE LOCKED AT THIS TIME FOR TRANSPORT TO IMAGING.
--- NOTE | 2025-03-30 10:19 | NUR ---
PATIENT BACK FROM IMAGING AND REPORTING "SEVERELY DIZZY AND LIGHTHEADED". PATIENT BLOOD PRESSURE TAKEN AND WAS 148/95, O2 96%, PULSE OF 71, AND RESPIRATORY RATE OF 15. DR BARNARD NOTIFIED. MD WITH VERBAL ORDER TO STOP IV MEDICATION ACETADOTE AT THIS TIME. MD WITH NO FURTHER ORDER. IV MEDICATION STOPPED, IV FLUID BOLUS INFUSING. PATIENT AGREED TO CALL THIS RN IF SYMPTOMS WORSEN. PATIENT WITHOUT FURTHER NEEDS AT THIS TIME. CALL LIGHT AND PERSONAL BELONGINGS ARE WITHIN REACH.
--- NOTE | 2025-03-30 10:45 | NUR ---
FLUID BOLUS COMPLETED. IV FLUSHED WITH 10ML OF NS, DRESSING IS INTACT, IV IS SALINE LOCKED. PATIENT REPORTS STILL FEELING DIZZY, BUT HAS HAD "MINOR IMPROVEMENT, BUT STILL REALLY DIZZY". PATIENT WITHOUT FURTHER NEEDS AT THIS TIME. CALL LIGHT AND PERSONAL BELONGINGS ARE WITHIN REACH.
[2025-03-30] MEDS ORDERED: PHARMACY RENAL DOSE ADJUSTMENT 1 DOSE MISC PO SCH (12:00)
--- NOTE | 2025-03-30 12:11 | NUR ---
PT NOT AVAILABLE FOR VISIT. PROVIDED PRAYER.
--- NOTE | 2025-03-30 12:15 | NUR ---
PATIENT CALLED FOR HIS URINAL TO BE EMPTIED. PATIENT VOIDED 575ML OF DARK ORANGE URINE. PATIENT STATES HE IS "STILL DIZZY AND LIGHTHEADED, BUT IT HAS SLOWLY GOTTEN BETTER". PATIENT LUNCH TRAY SET UP INFRONT OF PATIENT. MILK REMOVED FROM PATIENT TRAY PER PATIENT REQUEST. PATIENT WITHOUT ANY FURTHER NEEDS AT THIS TIME. CALL LIGHT AND PERSONAL BELONGINGS ARE WITHIN REACH.
--- NOTE | 2025-03-30 13:15 | NUR ---
PATIENT TRAY REMOVED, FRESH ICE WATER PROVIDED. PATIENT REPORT HE "WOULD LIKE TO GET UP AND GO TO THE BATHROOM AT SOME POINT SINCE MY DIZZINESS HAS GOTTEN BETTER". PATIENT DENIES WANTING TO GET UP AND GO AT THIS TIME. PATIENT EDUCATED TO CALL FOR HELP BEFORE GETTING UP DUE TO RECENT DIZZINESS AND LIGHTHEADEDNESS. PATIENT VERBALZIED UNDERSTANDING. PATIENT WITHOUT FURTHER NEEDS AT THIS TIME. CALL LIGHT AND PERSONAL BELONGINGS ARE WITHIN REACH.
--- NOTE | 2025-03-30 14:00 | NUR ---
PATIENT REPORTS THE DIZZINESS AND LIGHTHEADED IS NOW GONE. PATIENT WITHOUT FURTHER NEEDS AT THIS TIME. CALL LIGHT AND PERSONAL BELONGINGS ARE WITHIN REACH.
--- NOTE | 2025-03-30 14:15 | NUR ---
MD MADE AWARE THAT PATIENT DIZZINESS AND LIGHTHEADEDNESS HAS RESOLVED. THIS RN ASKED MD IF HE WOULD LIKE TO CANCEL PATIENT MEDICATION. STATES "NO, I WOULD STILL LIKE THE PATIENT TO RECIEVE THIS MEDICATION, BUT LET HIM REST AWHILE LONGER AND WE CAN TRY THE MEDICATION AGAIN LATER." WITH NO FURTHER ORDERS AT THIS TIME. CALL ENDED.
--- NOTE | 2025-03-30 14:30 | NUR ---
WENT IN TO CHECK ON PATIENT. PATIENT JUST FINISHED HIS SHOWER. PATIENT SITTING UP IN HIS CHAIR. TOOK THE COVER OFF HIS IV. GOT HIM MORE ICE WATER. NEED ANYTHING ELSE AND PATIENT SAID NOT AT THIS TIME.
--- NOTE | 2025-03-30 19:29 | NUR ---
REPORT RECEIVED FROM DAY SHIFT RN. PATIENT RESTING IN BED. DENIES NEEDS AT THIS TIME. CALL LIGHT IN REACH.
--- NOTE | 2025-03-30 20:08 | NUR ---
SCHEDULED IV MEDICATION INFUSING PER ORDER. DOUBLE VERIFIED BY CHARGE CRYSTAL RN. PATIENT RESTING IN BED. VS AND I&Os OBTAINED AND RECORDED. PATIENT DENIES NEEDS OR PAIN. ASSESSMENT COMPLETE. BOWEL TONES ACTIVE. PATIENT HAS NO FURTHER NEEDS AT THIS TIME. CALL LIGHT IN REACH.
--- NOTE | 2025-03-30 22:54 | NUR ---
PATIENT RESTING IN BED. DENIES NEEDS AT THIS TIME. CALL LIGHT IN REACH.
[2025-03-31] VITALS (15 sets, daily range): BP systolic 99–149; BP diastolic 82–105
[2025-03-31] MEDS ORDERED: HYDROmorphone HCL 1 MG/ML SYR IV PRN (00:30)
[2025-03-31 00:42] LABS: BASOPHILS 1.1 % (0.2-1.2); EOSINOPHILS 5.2 % (0.8-7.0); LYMPHOCYTES 24.4 % (21.8-53.1); MCH 28.8 PG (25.7-32.2); MCHC 34.1 g/dL (32.3-36.5); MCV 84.7 fL (79.0-92.2); MONOCYTES 7.8 % (5.3-12.2); NEUTROPHILS 61.2 % (34.0-67.9); RBC 5.41 M/uL (4.63-6.08)
[2025-03-31 00:58] LABS: ALT (SGPT) 978.0 U/L (14-59); AST (SGOT) 367.0 U/L (15-37); GLOMERULAR FILTRATION RATE,EST 85.0 mL/min (>60); PROTEIN, TOTAL 7.3 g/dL (6.4-8.2); UREA NITROGEN 8.0 mg/dL (7-18)
--- NOTE | 2025-03-31 02:17 | NUR ---
CALL RECEIVED TO MS UNIT FROM DR. BARNARD. NEW ORDERS RECEIVED FROM PROVIDER.
--- NOTE | 2025-03-31 02:24 | NUR ---
0005 - CALL LIGHT ANSWERED. THIS RN TO ROOM. PATIENT STATES "MY LIVER HURTS SO BAD. THERE IS SO MUCH PRESSURE". THIS RN ENCOURAGED PATIENT TO WALK THE DEUTSCH. PATIENT WALKED 3 LAPS AROUND MED SURG FLOOR, ABLE TO BURP MULTIPLE TIMES. PATIENT BACK TO ROOM. PATIENT STATES "IT FEELS A LITTLE BETTER BUT IT STILL HURTS SO BAD". 0020 - THIS RN DELAGATED BREN Fernández TO OBTAIN VS ON PATIENT. THIS RN CALLED MD BARNARD TO UPDATE ON PATIENT STATUS. NEW ORDERS FOR XRAY AND PAIN MEDICATION PLACED. VERIFIED USING REPEAT BACK METHOD. 0050 - THIS RN BROUGHT PATIENT BY WHEELCHAIR TO OBTAIN ABD XRAY. ONCE ARRIVING TO XRAY PATIENT STATED "I DO NOT FEEL GOOD". PATIENT LOOKED SWEATY, AND CLOSED HIS EYES. THIS RN TOLD PATIENT TO OPEN HIS EYES. PATIENT BARELY ABLE TO OPEN EYES OR HOLD HIS HEAD UP ON HIS OWN. 0058 - THIS RN FOUND SUPERVISOR BEEHIVE KILN BATSHEVA FOR HELP. PATIENT TRANSPORTED TO ER ROOM 8. RAPID REPONSE CALLED TO ER ROOM 8. THIS RN CALLED AND UPDATED MD BARNARD. MD CANNON UPDATED MD BARNARD WELL. LABS OBTAINED. EKG OBTAINED. VS OBTAINED. HEAD AND ABD CT OBTAINED. PATIENT OBSERVED AND IN ER FOR APPROXIMATELY 2 HOURS. 0224 - PATIENT TRANSFERRED BACK TO MED SURG FLOOR VIA STRETCHER. PATIENT TRANSFERRED FROM STRETCHER TO BED USING 2P SBA. CPOX IN PLACE. 2L NC IN PLACE FOR CHONIC SLEEP APNEA. PATIENT DENIES FURTHER NEEDS. BED ALARM ON.
[2025-03-31] MEDS ORDERED: LACTATED RINGER'S 1,000 ML IV ONE (02:30)
--- NOTE | 2025-03-31 02:42 | NUR ---
CALL PLACED TO MD BARNARD PER MD HURTADO REQUEST. UPDATED ON PATIENTS CURRENT STATUS. NEW ORDERS RECEIVED. VERIFIED USING REPEATBACK METHOD.
[2025-03-31] MEDS ORDERED: LORazepam 1 MG TAB PO PRN (02:45)
--- NOTE | 2025-03-31 03:37 | NUR ---
IVF BOLUS COMPLETE-IV SL'D. CPOX ALARMED X 1 FOR DESAT TO 76%, QUICKLY BACK UP TO LOW 90'S. PT SLEEPING SOUNDLY AND SNORING.
[2025-03-31 05:21] LABS: BASOPHILS 0.9 % (0.2-1.2); EOSINOPHILS 2.7 % (0.8-7.0); LYMPHOCYTES 18.1 % (21.8-53.1); MCH 29.0 PG (25.7-32.2); MCHC 34.0 g/dL (32.3-36.5); MCV 85.5 fL (79.0-92.2); MONOCYTES 7.8 % (5.3-12.2); NEUTROPHILS 70.2 % (34.0-67.9); RBC 4.96 M/uL (4.63-6.08)
[2025-03-31 05:34] LABS: INR 1.11 (0.80-1.30); PROTIME 13.9 Sec (11.2-14.2)
[2025-03-31 05:39] LABS: ALT (SGPT) 845.0 U/L (14-59); AST (SGOT) 302.0 U/L (15-37); GLOMERULAR FILTRATION RATE,EST 93.0 mL/min (>60); PROTEIN, TOTAL 6.5 g/dL (6.4-8.2); UREA NITROGEN 7.0 mg/dL (7-18)
--- NOTE | 2025-03-31 05:41 | NUR ---
PATIENT RESTING IN BED ON BACK WITH EYES CLOSED. RESPIRATIONS EVEN AND UNLABORED. CPOX IN PLACE. BED ALARM ON. CALL LIGHT IN REACH.
[2025-03-31 06:18] LABS: PARASITES SMEAR GIEMSA STN,BLD Negative (Negative)
--- NOTE | 2025-03-31 07:25 | NUR ---
REPORT RECIEVED FROM DIEGO DELANEY. PATIENT RESTING IN BED ON HIS BACK WITH HIS EYES CLOSED. EVEN AND UNLABORED RESPIRATIONS NOTED. CALL LIGHT AND PERSONAL BELONGINGS ARE WITHIN REACH. PATIENT IS 95% ON 2LNC. CPOX AT BEDSIDE.
--- NOTE | 2025-03-31 07:49 | NUR ---
PATIENT RESTING IN BED, EASILY AROUSABLE WHEN THIS RN ENTERED ROOM. PATIENT REPORTS BEING HOT, ROOM TEMP AT 67 DEGREES. VITAL SIGNS TAKEN AND ARE STABLE. ICE PACK PROVIDED PER PATIENT REQUEST. WATER TAKEN FROM BEDSIDE TABLE FOR ABDOMINAL US. PATIENT WITHOUT COMPLAINTS OF PAIN AT THIS TIME. BOWEL TONES ARE HYPOACTIVE IN BILATERAL UPPER QUADRANTS, AND ACTIVE IN BILATERAL LOWER QUADRANTS. PATIENT IS 96% ON 2LNC. CPOX AT BEDSIDE. PATIENT WITHOUT FURTHER NEEDS AT THIS TIME. CALL LIGHT AND PERSONAL BELONGINGS ARE WITHIN REACH.
--- NOTE | 2025-03-31 08:56 | NUR ---
US TECH AT BEDSIDE
[2025-03-31] MEDS ORDERED: ENOXAPARIN SODIUM 40 MG/0.4 ML SYR SUB-Q SCH (09:00)
--- NOTE | 2025-03-31 09:36 | NUR ---
PATIENT MEDICATED PER EMAR. PATIENT SAT UP IN BED FOR BREAKFAST. PATIENT REPORTS POOR APPETITE, BUT ATTEMPTING TO EAT WHAT HE CAN. PATIENT REPORTS 4/10 HEADACHE, PRN MOTRIN ADMINISTERED. FRESH ICE WATER PROVIDED. PATIENT WITHOUT FURTHER NEEDS AT THIS TIME. CALL LIGHT AND PERSONAL BELONGINGS ARE WITHIN REACH.
--- NOTE | 2025-03-31 10:25 | NUR ---
PATIENT ASSESSMENT COMPLETED. PATIENT RESTING IN BED REQUESTING TO BE LEFT ALONE FOR A BIT TO TAKE A NAP UNTIL HIS VISITOR COME TO VISIT. PATIENT WITHOUT FURTHER NEEDS AT THIS TIME. CALL LIGHT AND PERSONAL BELONGINGS ARE WITHIN REACH.
--- NOTE | 2025-03-31 11:53 | NUR ---
PATIENT RESTING IN BED ON HIS BACK WITH HIS EYES CLOSED. EVEN AND UNLABORED RESPIRATIONS NOTED. CALL LIGHT AND PERSONAL BELONGINGS ARE WITHIN REACH. PATIENT MOM (GALDINO) AT BEDSIDE.
--- NOTE | 2025-03-31 12:41 | NUR ---
PATIENT REPORTS HEADACHE AND STATES "I THINK IT'S BECAUSE I DRINK DIET COKE EVERYDAY AND I HAVEN'T BEEN HAVING CAFFEINE." PATIENT ALSO REPORT NOT BEING ABLE TO HAVE A BOWEL MOVEMENT BUT FEELS "THAT I'M FULL OF GAS". DR BARNARD NOTIFIED. WITH TELEPHONE ORDER FOR TRAMADOL 50MG Q6 PRN AND MIRALAX BID. WITH NO FURTHER ORDERS AT THIS TIME. CALL ENDED.
--- NOTE | 2025-03-31 12:45 | NUR ---
PATIENT IS IN BED AT THIS TIME, MOTHER IS IN ROOM, PATIENT HAS NOT HAD A BOWL MOVMENT YET, HOUSE WORKER GENERAL CHARTED VITALS AND I&O'S, RN RAYSHAWN ENTERED THEM. CALL LIGHT WITH IN REACH AND NOTHING ELSE NEEDED AT THIS TIME.
[2025-03-31] MEDS ORDERED: POLYETHYLENE GLYCOL 3350 1 PACKET PO SCH (13:00)
[2025-03-31] MEDS ORDERED: TRAMADOL HCL 50 MG TAB PO PRN (13:00)
--- NOTE | 2025-03-31 13:10 | NUR ---
PATIENT MEDICATED PER EMAR. PATIENT GIVEN MIRALAX IN APPLE JUICE, PRUNE JUICE WITH VEGAN BUTTER TO ASSIST WITH BOWEL MOVEMENTS. PATIENT TOLERATED WELL AND DID NOT VOMIT. PRN DOSE OF TRAMODOL GIVEN FOR HEADACHE. FRESH ICE WATER PROVIDED. PATIENT WITHOUT FURTHER NEEDS AT THIS TIME. CALL LIGHT AND PERSONAL BELONGINGS ARE WITHIN REACH. CPOX AT BEDSIDE. PATIENT MOM AT BEDSIDE.
[2025-03-31 13:13] LABS: EBV AB TO VIRAL CAPSID AG IGM 11.3 U/mL (0.0-43.9)
[2025-03-31 13:36] LABS: EBV AB TO VIRAL CAPSID AG IGG 647.0 U/mL (0.0-21.9)
--- NOTE | 2025-03-31 14:52 | NUR ---
PATIENT RESTING IN BED ON HIS PHONE WITH HIS MOM AT BEDSIDE. PATIENT REPORTS PRN DOSE OF TRAMODOL "HAS HELPED, BUT IT'S STILL KIND OF LINGERING" WHEN ASKED ABOUT HIS HEADACHE. WARM BLANKET PROVIDED. PATIENT AND FAMILY WITHOUT FURTHER NEEDS AT THIS TIME. CALL LIGHT AND PERSONAL BELONGINGS ARE WITHIN REACH.
--- NOTE | 2025-03-31 16:31 | NUR ---
PATIENT MEDICATED PER EMAR. WARM BLANKET PROVIDED. PATIENT REQUESTING TO BE LEFT ALONE FOR NOW TO TAKE A NAP. PATIENT MOM AT BEDSIDE. PATIENT WITHOUT FURTHER NEEDS AT THIS TIME. CALL LIGHT AND PERSONAL BELONGINGS ARE WITHIN REACH.
[2025-03-31 17:20] LABS: HEPATITIS A ANTIBODY, IGM Negative (Negative); HEPATITIS C AB CIA INTERP Negative (Negative); HEPATITIS C ANTIBODY CIA INDEX 0.11 IV (())
--- NOTE | 2025-03-31 17:40 | NUR ---
PATIENT RESTING IN BED ON HIS BACK WITH HIS EYES CLOSED AND HIS MOUTH OPEN. EVEN AND UNLABORED RESPIRATIONS NOTED. CALL LIGHT AND PERSONAL BELONGINGS ARE WITHIN REACH.
--- NOTE | 2025-03-31 18:48 | NUR ---
WOUND VAC DRESSING ASSESSED AND NOTED TO HAVE MINIMAL DRAINAGE. NO LEAKAGE NOTED. PATIENT NG TUBE CLAMPED. PATIENT UP FOR A WALK IN THE HALLS WITH FAMILY.
--- NOTE | 2025-03-31 18:49 | NUR ---
PATIENT RESTING WITH HIS EYES CLOSED AND MOUTH OPEN. EVEN AND UNLABORED RESPIRATIONS NOTED. CALL LIGHT AND PERSONAL BELONGINGS ARE WITHIN REACH. PATIENT MOM AT BEDSIDE.
--- NOTE | 2025-03-31 19:00 | NUR ---
PATIENT IS IN BED SLEEPING AT THIS TIME, RN TRUPTI OKED THAT I HAVE NOT GOETTEN HIS VITALS AND I&O'S. HE HAS INSOMNIA AND HAS NOT SLEPT AND REQUESTED TO BE LEFT ALONE. PUBLIC RELATIONS DIRECTOR WENT AND CHECKED ON PATIENT AND HE IS STILL SLEEPING AND HAS NOT EATTEN YET. FOOD IS STILL IN ROOM FOR WHEN HE WAKES. CALL LIGHT WITH IN REACH AND NOTHING ELSE NEEDED AT THIS TIME.
--- NOTE | 2025-03-31 21:04 | NUR ---
ACADEMIC SUPPORT DIRECTOR OBTAINED VITALS AND I&O. ICE WATER REFILLED. PT STATES NO FUTHER NEEDS AT THIS TIME. CALL LIGHT WITHIN REACH.
--- NOTE | 2025-03-31 21:42 | NUR ---
On room air, lungs clear bilat. 2 SL patent. abd soft., jorge l, no bm yet. Took Miralax well, no c/o pain at this time. Pleasnt and cooperative. turns and repostions by self
--- NOTE | 2025-03-31 22:50 | NUR ---
RESTING, EYES CLOSED, ON ROOM AIR, NO S/X DISTRESS.
--- NOTE | 2025-04-01 00:59 | NUR ---
Resting, eyes closed, no s/sx distress.
--- NOTE | 2025-04-01 02:39 | NUR ---
resting, eyes closed, no s/sx distress
[2025-04-01 05:12] LABS: BASOPHILS 0.8 % (0.2-1.2); EOSINOPHILS 4.8 % (0.8-7.0); LYMPHOCYTES 17.8 % (21.8-53.1); MCH 28.9 PG (25.7-32.2); MCHC 33.4 g/dL (32.3-36.5); MCV 86.4 fL (79.0-92.2); MONOCYTES 10.1 % (5.3-12.2); NEUTROPHILS 66.3 % (34.0-67.9); RBC 5.06 M/uL (4.63-6.08)
[2025-04-01 05:22] LABS: INR 1.06 (0.80-1.30); PROTIME 13.1 Sec (11.2-14.2)
[2025-04-01 05:28] LABS: ALT (SGPT) 764.0 U/L (14-59); AST (SGOT) 224.0 U/L (15-37); GLOMERULAR FILTRATION RATE,EST 81.0 mL/min (>60); PROTEIN, TOTAL 6.7 g/dL (6.4-8.2); UREA NITROGEN 5.0 mg/dL (7-18)
[2025-04-01 05:30] VITALS: BP 131/90
[2025-04-01 05:36] VITALS: BP 131/90
--- NOTE | 2025-04-01 05:38 | NUR ---
Has slept well all shift. no bm yet, aware of bm sample needed. voiding QS vito colored urine using urinal. no c/o pain
--- NOTE | 2025-04-01 07:43 | NUR ---
REPORT RECIEVED FROM DIEGO STONE. PATIENT RESTING IN BED ON HIS RIGHT SIDE WITH HIS EYES CLOSED. EVEN AND UNLABORED RESPIRATIONS NOTED. CALL LIGHT AND PERSONAL BELONGINGS ARE WITHIN REACH.
[2025-04-01] MEDS ORDERED: POTASSIUM CHLORIDE 10 MEQ TABCR PO ONE (08:15)
[2025-04-01 08:55] VITALS: BP 143/98
[2025-04-01 08:56] VITALS: BP 143/98
--- NOTE | 2025-04-01 08:59 | NUR ---
PATIENT MEDICATED PER EMAR. PATIENT SITTING UP IN BED EATING BREAKFAST. PRUNE JUICE WITH BUTTER PROVIDED TO ASSIST WITH BOWEL MOVEMENT. FRESH ICE WATER PROVIDED. JUHI NASSAR IN ROOM AND OBTAINED VITAL SIGNS. VITAL SIGNS ARE STABLE. PATIENT VISITING WITH VISITOR AT BEDSIDE. PATIENT DENIES ANY DIZZINESS OR HEADACHE THIS MORNING. BOWEL TONES ARE ACTIVE IN ALL FOUR QUADRANTS. PATIENT WITHOUT FURTHER NEEDS AT THIS TIME. CALL LIGHT AND PERSONAL BELONGINGS ARE WITHIN REACH.
--- NOTE | 2025-04-01 09:25 | NUR ---
PATIENT IS IN BED AT THIS TIME, SITTING UP AND LOOKING MUCH BETTER THAN YESTERDAY. ATE ALL OF HIS FOOD, BUDGET ASSISTANT ASSISTED IN GETTING VITALS, RN RAYSHAWN CHARTED THEM, AND I GOT I&O'S. FATHER IS IN ROOM WITH PATIENT AT THIS TIME, CALL LIGHT WITH IN REACH AND NOTHING ELSE NEEDED AT THIS TIME.
--- NOTE | 2025-04-01 09:59 | EKG ---
[facility] [address] [facility] [place] [address] Signed Normal sinus rhythm Nonspecific T wave abnormality Abnormal ECG When compared with ECG of 10-AUG-2020 04:03, Nonspecific T wave abnormality now evident in Lateral leads Confirmed by Rupa Schwartz MD ([id number]) on 04/01/2025 9:59:12 AM Electronically Signed By: RUPA SCHWARTZ MD 04/01/25 0959 PATIENT NAME: FRAN GARCIA III Electrocardiogram DATE OF : 79 PHYSICIAN: RUPA SCHWARTZ MD REPORT #: [id number] REPORT IS CONFIDENTIAL AND NOT TO BE RELEASED WITHOUT AUTHORIZATION
[2025-04-01 15:13] LABS: HIV 1,2 COMBO ANTIGEN/ANTIBODY Reactive (Negative); HIV SEROLOGIC INTERPRETATION HIV Abs Neg (()); HIV-1 ANTIBODY Negative (Negative); HIV-2 ANTIBODY Negative (Negative)
[2025-04-02 11:03] LABS: PARASITES SMEAR GIEMSA STN,BLD Negative (Negative)
== END 2025-04-01 10:05 | disposition home or self-care (01) | DRG 442 ==
LOC: ED 15:16 → MS 15:18
PROVIDERS: Emergency Medicine; ADMIT Student in an Organized Health Care Education/Training Program; ATTEND Student in an Organized Health Care Education/Training Program
DX: E80.6 Other disorders of bilirubin metabolism (principal); S36.119A Unspecified injury of liver, initial encounter; X58.XXXA Exposure to other specified factors, initial encounter; E66.9 Obesity, unspecified; Z90.49 Acquired absence of other specified parts of digestive tract; Z79.899 Other long term (current) drug therapy; Z68.30 Body mass index [BMI] 30.0-30.9, adult
CPT/HCPCS: 36415; 70450; 71046; 74177; 76705; 80053; 80074; 81003; 83690; 83735; 85025; 85610; 86665; 87207; 93005; 93010; 94762; A9270; G0480; J0132; J1171; J1650; J2405; J2470; J7030; J7040; J7060; J7070; J7121; Q9967

== ENCOUNTER 2025-04-01 15:50 | Emergency (ER) | payer BC ==
[~2025-04-01] VITALS: Ht 198.1 cm; Wt 120.2 kg
[~2025-04-01 15:50] MED LIST changes: +SEMAGLUTID
--- OUTSIDE RECORDS SUMMARY | 2025-04-01 15:58 | XMS ---
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 Roge has no Care Guidelines for this patient. [facility] V[facility] COUNT (12 MO.) [facility] T[facility] NOTE: Visits indicate total known visits. ED/C VISIT TRACKING (12 MO.) 04/01/2025 15:50 [facility] TYPE: Emergency COMPLAINT: - ABD PAIN 03/29/2025 15:17 [facility] TYPE: Emergency COMPLAINT: - VOMITING,DEHYDRATION INPATIENT VISIT TRACKING (12 MO.) 03/30/2025 09:23 [facility] TYPE: Medical Surgical COMPLAINT: - JAUNDICE [email or web address]
[2025-04-01 16:22] LABS: BASOPHILS 1.1 % (0.2-1.2); EOSINOPHILS 4.4 % (0.8-7.0); LYMPHOCYTES 18.3 % (21.8-53.1); MCH 28.0 PG (25.7-32.2); MCHC 32.9 g/dL (32.3-36.5); MCV 85.2 fL (79.0-92.2); MONOCYTES 7.3 % (5.3-12.2); NEUTROPHILS 68.7 % (34.0-67.9); RBC 5.60 M/uL (4.63-6.08)
[2025-04-01 16:31] LABS: ALT (SGPT) 801 U/L (14-59); AST (SGOT) 210 U/L (15-37); GLOMERULAR FILTRATION RATE,EST 77 mL/min (>60); PROTEIN, TOTAL 7.5 g/dL (6.4-8.2); UREA NITROGEN 8 mg/dL (7-18)
[2025-04-01] MEDS ORDERED: HYDROmorphone HCL 1 MG/ML SYR IV ONE (17:30)
[2025-04-01] MEDS ORDERED: SODIUM CHLORIDE 0.9% 1,000 ML IV ONE (17:30)
[2025-04-01 19:28] LABS: BLOOD/HGB, URINE NEGATIVE (Negative); KETONE, URINE SMALL (Negative); LEUK ESTERASE, URINE NEGATIVE (negative); NITRITE, URINE NEGATIVE (negative)
[2025-04-01] MEDS ORDERED: LACTATED RINGER'S 1,000 ML IV ONE (20:15)
[2025-04-01] MEDS ORDERED: LACTATED RINGER'S 1,000 ML IV SCH (21:00)
[2025-04-01 22:22] VITALS: BP 139/91
== END 2025-04-01 22:22 | disposition short-term general hospital (02) ==
LOC: ED 15:50
PROVIDERS: Emergency Medicine
DX: K85.90 Acute pancreatitis without necrosis or infection, unspecified (principal)
CPT/HCPCS: 36415; 74177; 76705; 80053; 81003; 83690; 83735; 85025; 96375; 96376; 99285-25; J1171; J2405; J7030; J7121; Q9967

== ENCOUNTER 2025-08-08 07:52 | Day surgery (SDC) | payer BC, OTHER ==
[~2025-08-08] VITALS: Ht 198.1 cm; Wt 125.0 kg
[~2025-08-08 07:52] MED LIST changes: +IBLOOD GLUCOSE TEST STRIP 1 EA TEST VI PRN; +LACTATED RINGER'S 1,000 ML IV SCH; +LIDOCAINE HCL 1% 5 ML SDV INJ ONE
[2025-08-08 08:11] VITALS: BP 127/78
[2025-08-08] MEDS ORDERED: LIDOCAINE HCL 2% 5 ML SDV ONE (10:22)
--- NOTE | 2025-08-08 11:29 | NUR ---
08/08/25 1129 Rosalba Miller 1125-PATIENT ARRIVED TO PACU ON 6L MASK RR EVEN NONAROUSABLE LAYING LEFT LATERAL 92-93% ABDOMEN SOFT IVF INFUSING. SR HR 70'S
[2025-08-08 12:09] VITALS: BP 119/83
--- NOTE | 2025-08-10 11:30 | OR ---
[facility] [address] [place], [place] [address] Signed DATE OF OPERATION: 08/08/2025 SURGEON: Fran Huerta MD PREOPERATIVE DIAGNOSIS: History of large polyp (4 cm) 2023 (Dr. Abiel Montanez). POSTOPERATIVE DIAGNOSIS: Minimal diverticula and internal hemorrhoids. No evidence of polyp or recurrent polyp. PROCEDURE: Total colonoscopy to cecum. ANESTHESIA: Intravenous sedation propofol infusion; Salomón Mireles CRNA. INDICATION: This 50-year-old man is a patient of MYRON Seo of [facility]. He underwent colonoscopy by Dr. Abiel Montanez in January 2024, where he was found to have a 4 cm polyp. On that basis a repeat colonoscopy was recommended for one year or so. The patient has no symptoms of bleeding, diarrhea or constipation and understands the risk of bleeding, infection, and perforation related to colonoscopy and wished to proceed. FINDINGS: The prep was excellent. Complete colonoscopy was undertaken of the cecum with full intubation of the cecum. Had several diverticula of the left colon, but no evidence of polyps. Retroflexed view confirmed some internal hemorrhoids. DESCRIPTION OF PROCEDURE: The patient was brought to the endoscopy suite and placed in lateral decubitus position, given intravenous sedation to the point of slurred speech and nystagmus. Digital rectal examination was normal. An Olympus video colonoscope was passed in the rectum and manipulated throughout the colon ultimately intubating the cecum itself. The ileocecal valve and appendiceal orifice were normal. Scope was withdrawn from that point of examination throughout showed no sign of abnormality other than a few scattered diverticula of the left colon. Retroflexed view of the rectum showed some internal hemorrhoidal change. Scope was straightened, withdrawn, and removed. The patient was taken to the recovery room in good condition. Electronically Signed By: FRAN HUERTA MD 08/10/25 1130 PATIENT NAME: FRAN GARCIA III OPERATIVE REPORT DATE OF : 79 REPORT #: [id number] PHYSICIAN: FRAN HUERTA MD PCP: [facility] REPORT IS CONFIDENTIAL AND NOT TO BE RELEASED WITHOUT AUTHORIZATION [facility] [address] [place], [place] [address] Signed CONCLUDING DIAGNOSIS: Internal hemorrhoids and scattered diverticula. No evidence of recurrent or new polyp. PLAN: Recommend repeat colonoscopy in 7 to 10 years, sooner if symptoms should develop. Also recommend high-fiber diet. MD MIKI Servin/NATASHAL /[id number] cc: MYRON Seo Copies: ~ Electronically Signed By: FRAN HUERTA MD 08/10/25 1130 PATIENT NAME: FRAN GARCIA III OPERATIVE REPORT DATE OF : 79 REPORT #: [id number] PHYSICIAN: FRAN HUERTA MD PCP: [facility] REPORT IS CONFIDENTIAL AND NOT TO BE RELEASED WITHOUT AUTHORIZATION
== END 2025-08-08 12:15 | disposition home or self-care (01) ==
LOC: DS 07:52
PROVIDERS: ATTEND Surgery
PROC: 0DJD8ZZ Inspection of Lower Intestinal Tract, Via Natural or Artificial Opening Endoscopic (ICD-10-PCS; principal; 2025-08-08 09:00)
DX: K57.30 Diverticulosis of large intestine without perforation or abscess without bleeding (principal); K64.8 Other hemorrhoids; Z86.0100 Personal history of colon polyps, unspecified
CPT/HCPCS: 00811; J2003; J2704; J7121